=== PATIENT | female | born 2000 | race American Indian/Alaskan Native ===

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

== ENCOUNTER 2020-10-31 02:20 | Inpatient (IN) | payer OTHER ==
[~2020-10-31 02:20] MED LIST: AMPICILLIN - 2 GM in SODIUM CHLORIDE 100 ML IVPB ONE; DEXTROSE 5%-LACTATED RINGERS 1,000 ML IV SCH
[2020-10-31] MEDS ORDERED: AMPICILLIN SODIUM 2 GM VIAL ONE (04:46)
[2020-10-31 05:01] LABS: BASO % 0.2 % (0-2.0); HEMATOCRIT 31.9 % (32.4-45.2); LYMPH % 17.9 % (8-40); MCH 30.2 pg (25.7-33.7); MCHC 34.5 g/dl (32.0-36.0); MEAN CELL VOLUME 87.5 fl (80-96); MEAN PLT VOLUME 8.3 fl (7.5-11.1); MONO % 7.7 % (3.8-10.2); NEUT % 73.2 % (42.8-82.8); PLATELET COUNT 201 10^3/uL (134-434); RBC 3.65 M/mm3 (3.60-5.2); RDW 14.5 % (11.6-15.6); WHITE BLOOD COUNT 8.8 K/mm3 (4.0-10.0)
[2020-10-31 05:07] LABS: INR 0.97 (0.83-1.09); PROTHROMBIN TIME (PATIENT) 11.7 SEC (9.7-13.0)
[2020-10-31 05:10] LABS: ACTIVATED PTT 27.8 SECONDS (25.2-36.5)
[2020-10-31 05:17] VITALS: BMI 26.6
[2020-10-31 05:33] LABS: BLOOD UREA NITROGEN 6.1 mg/dL (7-18); CALCIUM 8.1 mg/dL (8.5-10.1)
[2020-10-31 05:34] LABS: ALBUMIN 2.6 g/dl (3.4-5.0)
[2020-10-31 05:36] LABS: CREATININE 0.4 mg/dL (0.55-1.3)
[2020-10-31 05:38] LABS: BILIRUBIN,TOTAL 0.3 mg/dL (0.2-1)
[2020-10-31] MEDS ORDERED: AMPICILLIN - 1 GM in SODIUM CHLORIDE 100 ML IVPB SCH (06:00)
[2020-10-31 06:04] LABS: HEPATITIS B SURFACE AG MATERN NON-REACTIVE (NONREACTIVE); SYPHILIS W/ RPR CONF NON-REACTIVE (NONREACTIVE)
[2020-10-31 06:31] LABS: HIV INTERPRETATION NEGATIVE (NEGATIVE)
[2020-10-31 06:53] LABS: URINE APPEARANCE Cloudy; URINE BILIRUBIN 1+ (NEGATIVE); URINE COLOR Dark yellow; URINE GLUCOSE (UA) Trace (NEGATIVE); URINE KETONE Negative (NEGATIVE); URINE LEUK ESTERASE 1+ (NEGATIVE); URINE NITRITE Negative (NEGATIVE); URINE PROTEIN 2+ (NEGATIVE); URINE UROBILINOGEN 0.2 mg/dL (0.2-1.0)
[2020-10-31] MEDS: AMPICILLIN - 1 GM in SODIUM CHLORIDE 100 ML IVPB SCH ×4 (08:30→21:49)
[2020-10-31] MEDS ORDERED: AMPICILLIN SODIUM 1 GM VIAL ONE ×2 (08:34→12:10)
[2020-10-31] MEDS ORDERED: OXYTOCIN 30 UNITS in 0.9% NS 30 UNIT/500 ML INFUS.BAG IVPB ONE (10:08)
[2020-10-31] MEDS ORDERED: OXYTOCIN 30 UNITS in 0.9% NS 30 UNIT/500 ML INFUS.BAG IVPB SCH (10:30)
[2020-10-31] MEDS ORDERED: ELECTROLYTE-148 SOLN 1,000 ML IV SCH (11:30)
[2020-10-31] MEDS ORDERED: BUTORPHANOL TARTRATE 1 MG/ML VIAL IVPUSH ONE (12:59)
[2020-10-31] MEDS ORDERED: PROMETHAZINE HCL 25 MG/1 ML VIAL IVPUSH ONE (12:59)
[2020-10-31] MEDS ORDERED: CITRIC ACID/SODIUM CITRATE 30 ML UNIT-DOSE CUP PO ONE (15:15)
[2020-10-31] MEDS ORDERED: OXYTOCIN 20 UNITS in 0.9% NS 20 UNIT/1,000 ML INFUS.BAG IV ONE ×2 (16:38→17:57)
[2020-10-31] MEDS ORDERED: PHENYLEPHRINE HCL 10 MG/1 ML SINGLE DOSE VIAL ONE (16:59)
[2020-10-31] MEDS ORDERED: ACETAMINOPHEN 325 MG TABLET (FP) PO PRN (18:25)
[2020-10-31] MEDS ORDERED: METHYLERGONOVINE MALEATE 0.2 MG/1 ML AMP IM PRN (18:25)
[2020-10-31] MEDS ORDERED: SENNOSIDES/DOCUSATE COMBO (SENNA PLUS) TABLET (UD) PO PRN (18:25)
[2020-10-31] MEDS ORDERED: OXYTOCIN 20 UNITS in 0.9% NS 20 UNIT/1,000 ML INFUS.BAG IV SCH (18:30)
[2020-10-31 18:43] LABS: CORD HCO3 22.4 mmHg (20-29); CORD PCO2 49.1 mmHg (30-78); CORD pH 7.277 (7.14-7.44)
[2020-10-31 18:45] LABS: CORD BASE EXCESS -3.8 mmol/L (0-2); CORD HCO3 21.5 mmHg (20-29); CORD PCO2 40.3 mmHg (30-78); CORD pH 7.346 (7.14-7.44)
[2020-10-31] MEDS ORDERED: IBUPROFEN 800 MG/8 ML IJ IVPB ONE (19:17)
[2020-10-31] MEDS: IBUPROFEN 800 MG/8 ML IJ IVPB PRN (19:25)
[2020-10-31] MEDS ORDERED: HYDROmorphone HCl 2 MG/ML VIAL ONE (21:13)
[2020-10-31] MEDS ORDERED: HYDROmorphone HCl 2 MG/ML VIAL IVPB ONE (21:15)
[2020-11-01] MEDS: CEFAZOLIN 1 GM/D5W 1 GM/50 ML BAG IVPB SCH ×3 (01:30→18:42)
[2020-11-01] MEDS: IBUPROFEN 800 MG/8 ML IJ IVPB PRN (04:17)
[2020-11-01] MEDS: SIMETHICONE 80 MG TAB.CHEW (FP) PO PRN ×3 (04:17→21:39)
[2020-11-01 08:07] LABS: COCAINE QUALITATIVE URINE Negative ng/mL (Cutoff=300); MARIJUANA QL URINE CANNABINOID Negative ng/mL (Cutoff=50); METHADONE,QUALITATIVE URINE Negative ng/mL (Cutoff=300); OPIATES QL URINE Negative ng/mL (Cutoff=300); PHENCYCLIDINE,QUAL URINE Negative ng/mL (Cutoff=25); PROPOXYPHENE QL URINE Negative ng/mL (Cutoff=300); URINE AMPHETAMINES Negative ng/mL (Cutoff=1000)
[2020-11-01] MEDS: ENOXAPARIN NA (PORCINE) 40 MG/0.4 ML DISP.SYRIN SQ SCH (11:28)
[2020-11-01] MEDS: PRENATAL VITAMINS W/ FOLIC ACID TABLET (FP) PO SCH (11:28)
[2020-11-01] MEDS: FERROUS SO4 325 MG TABLET (FP) PO SCH ×2 (11:30→18:41)
[2020-11-01 11:50] LABS: BASO % 0.3 % (0-2.0); EOS % 0.1 % (0-4.5); LYMPH % 11.9 % (8-40); MCH 30.7 pg (25.7-33.7); MCHC 34.5 g/dl (32.0-36.0); MEAN CELL VOLUME 88.9 fl (80-96); MEAN PLT VOLUME 8.4 fl (7.5-11.1); MONO % 4.6 % (3.8-10.2); NEUT % 83.1 % (42.8-82.8); PLATELET COUNT 184 10^3/uL (134-434); RBC 3.27 M/mm3 (3.60-5.2); RDW 15.1 % (11.6-15.6)
[2020-11-01] MEDS ORDERED: BISACODYL 10 MG SUPP.RECT RC PRN (18:25)
[2020-11-01] MEDS: IBUPROFEN 600 MG TABLET (FP) PO PRN (18:42)
[2020-11-01] MEDS: oxyCODONE HCL 5 MG TABLET PO PRN (21:39)
[2020-11-02] MEDS: oxyCODONE HCL 5 MG TABLET PO PRN (03:40)
[2020-11-02] MEDS: SIMETHICONE 80 MG TAB.CHEW (FP) PO PRN ×4 (04:43→23:34)
[2020-11-02] MEDS: IBUPROFEN 600 MG TABLET (FP) PO PRN ×4 (04:43→23:33)
[2020-11-02] MEDS: FERROUS SO4 325 MG TABLET (FP) PO SCH ×2 (09:33→17:59)
[2020-11-02] MEDS: PRENATAL VITAMINS W/ FOLIC ACID TABLET (FP) PO SCH (09:33)
[2020-11-02] MEDS: ENOXAPARIN NA (PORCINE) 40 MG/0.4 ML DISP.SYRIN SQ SCH (09:34)
[2020-11-03] MEDS: SIMETHICONE 80 MG TAB.CHEW (FP) PO PRN ×2 (05:05→09:16)
[2020-11-03] MEDS: oxyCODONE HCL 5 MG TABLET PO PRN ×3 (05:05→13:20)
[2020-11-03] MEDS: FERROUS SO4 325 MG TABLET (FP) PO SCH (07:52)
[2020-11-03] MEDS: PRENATAL VITAMINS W/ FOLIC ACID TABLET (FP) PO SCH (09:15)
[2020-11-03] MEDS: ENOXAPARIN NA (PORCINE) 40 MG/0.4 ML DISP.SYRIN SQ SCH (09:16)
[2020-11-03 09:33] LABS: BASO % 0.2 % (0-2.0); EOS % 2.7 % (0-4.5); HEMATOCRIT 26.6 % (32.4-45.2); LYMPH % 20.5 % (8-40); MCHC 33.9 g/dl (32.0-36.0); MEAN CELL VOLUME 88.7 fl (80-96); MEAN PLT VOLUME 8.4 fl (7.5-11.1); MONO % 6.8 % (3.8-10.2); NEUT % 69.8 % (42.8-82.8); PLATELET COUNT 209 10^3/uL (134-434); RDW 15.2 % (11.6-15.6)
[2020-11-03 10:19] VITALS: BP 95/60; PULSE 88; TEMP 97.7
[2020-11-04 09:30] LABS: POC NITRAZINE NEG
== END 2020-11-03 16:00 | disposition home or self-care (01) | DRG 540 ==
LOC: JLDR 02:20 → J3W 20:20
PROVIDERS: ADMIT Obstetrics & Gynecology; ATTEND Obstetrics & Gynecology
PROC: 10D00Z1 Extraction of Products of Conception, Low, Open Approach (ICD-10-PCS; principal; 2020-10-31)
DX: O62.2 Other uterine inertia (principal); O76 Abnormality in fetal heart rate and rhythm complicating labor and delivery; O42.02 Full-term premature rupture of membranes, onset of labor within 24 hours of rupture; O77.0 Labor and delivery complicated by meconium in amniotic fluid; O48.0 Post-term pregnancy; Z3A.41 41 weeks gestation of pregnancy; Z37.0 Single live birth
CPT/HCPCS: 36415; 36600; 80053; 80307; 81003; 82803; 83986-QW; 85025; 85610; 85730; 86762; 86780; 86850; 86900; 86901; 87340; 87389; 88307-TC; 94010; C9803; U0003; U0005

== ENCOUNTER 2020-11-06 21:34 | Emergency (ER) | payer OTHER ==
[2020-11-06 21:54] VITALS: BP 101/71; PULSE 91; TEMP 97.7; BMI 29.3
[2020-11-07 00:39] LABS: URINE APPEARANCE Clear; URINE BILIRUBIN Negative (NEGATIVE); URINE COLOR Yellow; URINE GLUCOSE (UA) Negative (NEGATIVE); URINE KETONE Negative (NEGATIVE); URINE LEUK ESTERASE Negative (NEGATIVE); URINE NITRITE Negative (NEGATIVE); URINE PROTEIN Negative (NEGATIVE); URINE UROBILINOGEN 0.2 mg/dL (0.2-1.0)
[2020-11-07 03:15] LABS: EPI CELLS 9 /uL (0-25.1); HYALINE CASTS 1 /uL (0-3.1); URINE BACTERIA 62 /uL (0-1359); URINE RBC 20 /uL (0-23.9); URINE WBC 78 /uL (0-25.8)
== END 2020-11-07 00:52 | disposition home or self-care (01) ==
LOC: JER 21:34
DX: R30.0 Dysuria (principal); R10.30 Lower abdominal pain, unspecified
CPT/HCPCS: 81003; 87086; 99283-25

== ENCOUNTER 2023-04-26 17:52 | Emergency (ER) | payer OTHER ==
[2023-04-26 18:15] VITALS: BP 99/62; PULSE 90; RESP 18; TEMP 98.6; BMI 24.4
== END 2023-04-26 19:02 | disposition home or self-care (01) ==
LOC: JERFT 17:52
DX: R09.89 Other specified symptoms and signs involving the circulatory and respiratory systems (principal); R06.9 Unspecified abnormalities of breathing
CPT/HCPCS: 99282-25